=== PATIENT | male | born 1945 | race Caucasian/White ===

== ENCOUNTER 2017-02-03 17:14 | Emergency (ER) | payer BC, OTHER ==
[~2017-02-03] VITALS: Ht 162.6 cm; Wt 66.1 kg
[~2017-02-03 17:14] MED LIST: CHOL2000 PO; CLC100 PO; FLV1 PO; GLUC10007 PO; LVNIS30 SQ; METO25TA56 PO; MISCTAB88 PO; MULT-589 PO; PRT40 PO; RXC5 PO; THM100 PO; TYL325X PO
[2017-02-03 17:20] VITALS: Ht 162.6 cm; Wt 66.1 kg
[2017-02-03] MEDS ORDERED: THIA100T11 PO (17:55)
[2017-02-03] MEDS ORDERED: FLV1 PO (17:55)
[2017-02-03] MEDS ORDERED: MULT-208 PO (17:55)
[2017-02-03] MEDS ORDERED: LYSI500T4 PO (17:57)
[2017-02-03] MEDS ORDERED: CHOL1TAB18 PO (17:58)
[2017-02-03] MEDS ORDERED: SODIUM CHLORIDE 0.9% 1000ML 500 ML IV STA (18:05)
--- NOTE | 2017-02-03 18:17 | EMERGENCY ROOM VISIT NOTE ---
History Report prepared by Roberta: Rob Montanez Under the Supervision of: Dr. London Eagle M.D. First contact with patient: 17:59 Chief Complaint: ILLNESS Stated Complaint: FEELS FEVERISH- HX OF SEPSIS History of Present Illness The patient is a 71 year old male who presents to the Emergency Room with complaints of an improved headache starting about 5 days ago. He also reports stuffy nose and congestion. He reports cough with some phlegm production which has improved. He has been taking some honey whiskey with some relief. The patient had some diarrhea which seems to have resolved today. He has a history of sepsis occurring in 2014 and pneumonia occurring in July 2015. He is travelling to [place] tomorrow and would like to confirm that he does not have any serious issue. The patient reports some increased stress at home. He has a normal appetite and a normal fluid intake. He denies dizziness, sore throat, nausea, vomiting, urinary symptoms, or any other complaints. Source of History: patient Onset: about 5 days ago Position: head Timing: other (improved) Modifying Factors (Relieving): other (honey whiskey with some relief) Associated Symptoms: + cough, No sorethroat, No nausea, No vomiting, No urinary symptoms Review of Systems See HPI for pertinent positives & negatives. A total of 10 systems reviewed and were otherwise negative. Past Medical & Surgical Medical Problems: (1) Alcoh Dep Nec/Nos-Unspec (2) Cellulitis (3) Depress Disorder-Unspec (4) Elevated troponin (5) Hypertension (6) Hypertension Nos (7) Insect bite (8) Pneumonia (9) Sepsis Family History Hypertension Social History Smoking Status: Never Smoker Alcohol Use: occasionally Drug Use: none Marital Status: Housing Status: lives alone Occupation Status: retired Current/Historical Medications Scheduled Azithromycin (Zithromax), 500 MG PO DAILY Cholecalciferol (D3), 1,000 UNITS PO DAILY Folic Acid (Folic Acid), 1 MG PO DAILY Lysine (L-Lysine), Unknown Dose PO DAILY Metoprolol Tartrate (Lopressor) (Lopressor), 25 MG PO BID Misc Natural Products (Osteo Bi-Flex Triple Stre), 1 TAB PO BID Multiple Vitamins W/ Minerals (Daily Multi), 1 TAB PO DAILY Thiamine Hcl (Vitamin B-1), 100 MG PO Q2D Allergies Coded Allergies: Penicillins (Verified Allergy, Unknown, UNKNOWN-HAPPENED A CHILD, ) Physical Exam Vital Signs Date Time Temp Pulse Resp B/P (MAP) Pulse Ox O2 Delivery O2 Flow Rate FiO2 02/03/17 19:33 37.4 79 16 155/86 99 Room Air 02/03/17 17:20 37.2 95 20 162/97 98 Room Air Physical Exam GENERAL: Patient is in no acute distress. HEENT: No acute trauma, normocephalic atraumatic, mucous membranes moist, no nasal congestion, no scleral icterus. Fluid behind both ear drums, no infection. No throat erythema or exudate. NECK: No stridor, no adenopathy, no meningismus, trachea is midline. LUNGS: Clear to auscultation bilaterally, no wheeze, no rhonchi, breath sounds equal. HEART: Without murmurs gallops or rubs, regular rate and rhythm. ABDOMEN: Soft, nontender, bowel sounds positive, no hernias, no peritonitis. EXTREMITIES: No cyanosis or edema, full range of motion of all the joints without pain or difficulty, no signs for acute trauma. NEUROLOGIC: Oriented x 3, no acute motor or sensory deficits, no focal weakness. SKIN: No rash, no jaundice, no diaphoresis. Medical Decision & Procedures ER Provider Diagnostic Interpretation: X-ray results as stated below per interpretation by me and the radiologist: CHEST ONE VIEW PORTABLE CLINICAL HISTORY: Fever. Sepsis. COMPARISON STUDY: Chest radiograph August 19, 2015. FINDINGS: Lung volumes are normal. There is no pneumothorax or pleural effusion. Pulmonary vascularity is normal. Cardiac size is normal. There is no evidence of pulmonary edema. There is minimal right lower lung opacity. IMPRESSION: Mild right lower lung opacity. This could reflect atelectasis or an infectious process. Electronically signed by: Flex Hennessy M.D. 02/03/2017 6:30 PM Dictated Date/Time: 02/03/2017 6:27 PM Laboratory Results 02/03/17 18:34 Red Blood Count 4.82, Mean Corpuscular Volume 93.6, Mean Corpuscular Hemoglobin 32.2, Mean Corpuscular Hemoglobin Concent 34.4, Mean Platelet Volume 9.2, Neutrophils (%) (Auto) 76.6, Lymphocytes (%) (Auto) 13.9, Monocytes (%) (Auto) 8.6, Eosinophils (%) (Auto) 0.4, Basophils (%) (Auto) 0.1, Neutrophils # (Auto) 6.23, Lymphocytes # (Auto) 1.13, Monocytes # (Auto) 0.70, Eosinophils # (Auto) 0.03, Basophils # (Auto) 0.01 02/03/17 18:34 Test 02/03/17 18:20 02/03/17 18:34 Urine Color YELLOW Urine Appearance CLEAR (CLEAR) Urine pH 7.5 (4.5-7.5) Urine Specific [place] 1.018 (1.000-1.030) Urine Protein NEG (NEG) Urine Glucose (UA) NEG (NEG) Urine Ketones NEG (NEG) Urine Occult Blood NEG (NEG) Urine Nitrite NEG (NEG) Urine Bilirubin NEG (NEG) Urine Urobilinogen NEG (NEG) Urine Leukocyte Esterase NEG (NEG) Urine WBC (Auto) 0 /hpf (0-5) Urine RBC (Auto) 0-4 /hpf (0-4) Urine Hyaline Casts (Auto) 0 /lpf (0-5) Urine Epithelial Cells (Auto) 0-5 /lpf (0-5) Urine Bacteria (Auto) NEG (NEG) White Blood Count 8.13 K/uL (4.8-10.8) Red Blood Count 4.82 M/uL (4.7-6.1) Hemoglobin 15.5 g/dL (14.0-18.0) Hematocrit 45.1 % (42-52) Mean Corpuscular Volume 93.6 fL (80-100) Mean Corpuscular Hemoglobin 32.2 pg (25-34) Mean Corpuscular Hemoglobin Concent 34.4 g/dl (32-36) Platelet Count 203 K/uL (130-400) Mean Platelet Volume 9.2 fL (7.4-10.4) Neutrophils (%) (Auto) 76.6 % Lymphocytes (%) (Auto) 13.9 % Monocytes (%) (Auto) 8.6 % Eosinophils (%) (Auto) 0.4 % Basophils (%) (Auto) 0.1 % Neutrophils # (Auto) 6.23 K/uL (1.4-6.5) Lymphocytes # (Auto) 1.13 K/uL (1.2-3.4) Monocytes # (Auto) 0.70 K/uL (0.11-0.59) Eosinophils # (Auto) 0.03 K/uL (0-0.5) Basophils # (Auto) 0.01 K/uL (0-0.2) RDW Standard Deviation 43.2 fL (36.4-46.3) RDW Coefficient of Variation 12.6 % (11.5-14.5) Immature Granulocyte % (Auto) 0.4 % Immature Granulocyte # (Auto) 0.03 K/uL (0.00-0.02) Anion Gap 8.0 mmol/L (3-11) Est Creatinine Clear Calc Drug Dose 47.3 ml/min Estimated GFR () 70.1 Estimated GFR (Non- 60.5 BUN/Creatinine Ratio 12.1 (10-20) Lactic Acid Level 0.7 mmol/L (0.4-2.0) Calcium Level 9.3 mg/dl (8.5-10.1) Total Bilirubin 0.6 mg/dl (0.2-1) Aspartate Amino Transf (AST/SGOT) 45 U/L (15-37) Alanine Aminotransferase (ALT/SGPT) 40 U/L (12-78) Alkaline Phosphatase 81 U/L (45-117) Total Protein 7.8 gm/dl (6.4-8.2) Albumin 3.9 gm/dl (3.4-5.0) Globulin 3.9 gm/dl (2.5-4.0) Albumin/Globulin Ratio 1.0 (0.9-2) Laboratory results reviewed by me. Medications Administered Medications (Trade) Dose Ordered Sig/Juarez Route Start Time Stop Time Status Last Admin Dose Admin Sodium Chloride 500 ml @ 999 mls/hr Q31M STAT IV 02/03/17 18:05 02/03/17 18:35 DC 02/03/17 18:42 999 MLS/HR Azithromycin (Zithromax Tab) 500 mg NOW STAT PO 02/03/17 19:29 02/03/17 19:30 DC 02/03/17 19:29 500 MG ED Course 175: The patient was evaluated in room B11B. A complete history and physical exam was performed. 1804: Sodium Chloride 500 ml @ 999 mls/hr IV 1928: Zithromax Tab 500 mg PO 1931: Reevaluated the patient. Discussed results and discharge instructions: He verbalized understanding and agreement. The patient is ready for discharge. Medical Decision Medication Reconciliation: I attest that I have personally reviewed the patient' s current medication list. Blood Pressure Screening: Patient was found to have an elevated blood pressure and was referred to their primary doctor for recheck and further treatment. Differential diagnosis includes but is not limited to URI, pneumonia, UTI, bacteremia, sepsis, dehydration, anxiety. There is no leukocytosis or concerning anemia. No significant electrolyte abnormality, kidney failure, hepatitis. Urinalysis does not show infection. Lactic acid level is not elevated making sepsis less likely. Blood cultures are pending. Chest film shows atelectasis versus a small infiltrate at the right base. No pneumothorax or CHF. On exam, the patient was not hypoxic, he was not febrile or toxic. The patient has had sepsis and pneumonia in the past. With the x-ray findings, I have elected to treat him with antibiotics. I do think he can be discharged. He has had difficulty with fluoroquinolones. I will place him on Zithromax, he was given a 500 mg oral dose here. He was given IV saline. The patient was encouraged to return for worsening symptoms. He will follow with his doctor's office for a recheck. If he feels more short of breath, he will see the nearest ER. Impression Primary Impression: Pneumonia Scribe Attestation The scribe's documentation has been prepared under my direction and personally reviewed by me in its entirety. I confirm that the note above accurately reflects all work, treatment, procedures, and medical decision making performed by me. Departure Information Dispostion Home / Self-Care Prescriptions Azithromycin (Zithromax) 500 Mg Tab 500 MG PO DAILY, #5 TAB Prov: London Eagle M.D. 02/03/17 Referrals Dara MOODY M.D. (PCP) Forms HOME CARE DOCUMENTATION FORM, IMPORTANT VISIT INFORMATION, WORK / SCHOOL INSTRUCTIONS Patient Instructions My [facility] Additional Instructions zithromax as directed for next 5 days stay well hydrated see nearests ER for worsening symptoms lab testing was all ok today chest film showed a possible early pneumonia
--- NOTE | 2017-02-03 18:32 | DIAGNOSTIC IMAGING REPORT ---
CHEST ONE VIEW PORTABLE CLINICAL HISTORY: Fever. Sepsis. COMPARISON STUDY: Chest radiograph August 19, 2015. FINDINGS: Lung volumes are normal. There is no pneumothorax or pleural effusion. Pulmonary vascularity is normal. Cardiac size is normal. There is no evidence of pulmonary edema. There is minimal right lower lung opacity. IMPRESSION: Mild right lower lung opacity. This could reflect atelectasis or an infectious process. Electronically signed by: Flex Hennessy M.D. 02/03/2017 6:30 PM Dictated Date/Time: 02/03/2017 6:27 PM
[2017-02-03 18:58] LABS: BASO % 0.1 %; BASO ABS # 0.01 K/uL (0-0.2); COMPLETE YES; EOS % 0.4 %; HEMATOCRIT 45.1 % (42-52); IG% 0.4 %; LYMPH % 13.9 %; LYMPH ABS # 1.13 K/uL (1.2-3.4); MEAN CELL VOLUME 93.6 fL (80-100); MEAN CORPUSCULAR HEMOGLOBIN 32.2 pg (25-34); MEAN CORPUSCULAR HGB CONC 34.4 g/dl (32-36); MEAN PLATELET VOLUME 9.2 fL (7.4-10.4); MONO % 8.6 %; NEUT % 76.6 %; PLATELET COUNT 203 K/uL (130-400); RED BLOOD COUNT 4.82 M/uL (4.7-6.1); WHITE BLOOD COUNT 8.13 K/uL (4.8-10.8)
[2017-02-03 19:16] LABS: BUN/CREATININE RATIO 12.1 (10-20); CALCIUM 9.3 mg/dl (8.5-10.1); CREATININE 1.2 mg/dl (0.60-1.40); POTASSIUM 4.3 mmol/L (3.5-5.1)
[2017-02-03 19:24] LABS: MANUAL MICROSCOPIC REQUIRED? NO; REVIEW REQ? NO; URINE APPEARANCE CLEAR (CLEAR); URINE BILIRUBIN NEG (NEG); URINE COLOR YELLOW; URINE EPITHELIAL CELL AUTO 0-5 /lpf (0-5); URINE NITRITE NEG (NEG); URINE PH 7.5 (4.5-7.5); URINE SPECIFIC GRAVITY 1.018 (1.000-1.030); UROBILINOGEN NEG (NEG); ZZUR CULT IF INDIC CLEAN CATCH NO
[2017-02-03 19:25] LABS: SULFASALICYLIC ACID NEG (NEG)
[2017-02-03] MEDS ORDERED: AZITHROMYCIN 250 MG TAB PO STA (19:29)
[2017-02-03] MEDS ORDERED: AZIT500T26 PO (19:32)
[2017-02-03 19:33] VITALS: BP 155/86; PULSE 79; TEMP 37.4; O2SAT 99
== END 2017-02-03 19:41 | disposition home or self-care (01) ==
LOC: C.EDB 17:16
DX: J18.9 Pneumonia, unspecified organism (principal); I10 Essential (primary) hypertension; F32.9 Major depressive disorder, single episode, unspecified; Z86.19 Personal history of other infectious and parasitic diseases; Z79.899 Other long term (current) drug therapy; Z88.0 Allergy status to penicillin; Z82.49 Family history of ischemic heart disease and other diseases of the circulatory system